=== PATIENT | female | born 1980 | race Hispanic/Latino ===

== ENCOUNTER 2017-08-25 07:30 | Emergency (ER) | payer OTHER ==
[2017-08-25 08:06] LABS: APPEARANCE,URINE CLEAR (CLEAR); BILIRUBIN,URINE NEGATIVE (NEGATIVE); COLOR,URINE YELLOW (YELLOW); GLUCOSE, URINE (UA) NEGATIVE (NEGATIVE); KETONES,URINE NEGATIVE (NEGATIVE); LEUKOCYTE ESTERASE ,URINE NEGATIVE (NEGATIVE); NITRATE,URINE NEGATIVE (NEGATIVE); OCCULT BLOOD,URINE NEGATIVE (NEGATIVE); PH,URINE 5.5 (5.0-8.0); PROTEIN,URINE NEGATIVE (NEGATIVE); UROBILINOGEN,URINE 0.2 mg/dL (0.2-1.0)
[2017-08-25 08:18] LABS: BASOPHILS % (AUTO) 0.7 % (0.0-5.0); EOSINOPHILS % (AUTO) 0.8 % (0.0-8.0); HEMATOCRIT 38.7 % (36-48); LYMPHOCYTES % (AUTO) 22.7 % (21.0-51.0); MEAN CORPUSCULAR HEMOGLOBIN 25.2 pg (27.0-33.0); MEAN CORPUSCULAR HGB CONC 31.8 g/dL (32.0-36.0); MEAN CORPUSCULAR VOLUME 79.1 fL (79-99); MONOCYTES % (AUTO) 5.8 % (3.0-13.0); PLATELET COUNT (AUTO) 326 K/uL (130-400); RED BLOOD CELL COUNT(AUTO) 4.89 MIL/uL (4.00-5.50); RED CELL DISTRIBUTION WIDTH 14.9 % (11.0-15.5); WHITE BLOOD COUNT (AUTO) 16.5 K/uL (4.8-10.8)
[2017-08-25 08:22] LABS: HCG,QUAL RESULT NEGATIVE (NEGATIVE)
[2017-08-25] MEDS ORDERED: KETOROLAC TROMETHAMINE 30MG/ML ONE (08:33)
[2017-08-25 09:11] LABS: CREATININE 0.7 mg/dL (0.5-1.5); POTASSIUM 4.2 mmol/L (3.5-5.1)
[2017-08-25 09:20] LABS: ALBUMIN 3.2 g/dL (3.5-5.0); BILIRUBIN,TOTAL 0.5 mg/dL (0.2-1.0)
[2017-08-25 09:36] LABS: TOTAL PROTEIN, SERUM 7.1 g/dL (6.0-8.3)
[2017-08-25] MEDS ORDERED: IOPAMIDOL-370 75 ML VIAL IV ONE (09:38)
== END 2017-08-25 12:24 | disposition home or self-care (01) ==
LOC: EDH 07:30
DX: R10.12 Left upper quadrant pain (principal); R10.2 Pelvic and perineal pain; K42.9 Umbilical hernia without obstruction or gangrene; E11.9 Type 2 diabetes mellitus without complications; Z88.6 Allergy status to analgesic agent; Z90.49 Acquired absence of other specified parts of digestive tract
CPT/HCPCS: 36415; 74177; 80053; 81003; 81025; 85025; 96374; 99285; J1885; Q9967

== ENCOUNTER 2017-08-27 08:30 | Emergency (ER) | payer OTHER ==
[2017-08-27 09:31] LABS: APPEARANCE,URINE Clear (CLEAR); BILIRUBIN,URINE Negative (NEGATIVE); COLOR,URINE Yellow (YELLOW); GLUCOSE, URINE (UA) Negative (NEGATIVE); KETONES,URINE Negative (NEGATIVE); LEUKOCYTE ESTERASE ,URINE Moderate (NEGATIVE); NITRATE,URINE Negative (NEGATIVE); OCCULT BLOOD,URINE Large (NEGATIVE); PH,URINE 5.5 (5.0-8.0); PROTEIN,URINE Negative (NEGATIVE)
[2017-08-27 09:33] LABS: HCG,QUAL RESULT NEGATIVE (NEGATIVE)
[2017-08-27] MEDS ORDERED: LIDOCAINE/PRILOCAINE CREAM 5GM TUBE TP ONE (09:39)
[2017-08-27 09:57] LABS: EOSINOPHILS % (AUTO) 1.3 % (0.0-8.0); MEAN CORPUSCULAR HEMOGLOBIN 25.2 pg (27.0-33.0); MEAN CORPUSCULAR VOLUME 78.5 fL (79-99); MONOCYTES % (AUTO) 4.2 % (3.0-13.0); NEUTROPHILS % (AUTO) 76.5 % (40.0-77.0); NUCLEATED RED BLOOD CELLS 0.1 % (0.0-0.19); PLATELET COUNT (AUTO) 332 K/uL (130-400); RED BLOOD CELL COUNT(AUTO) 4.58 MIL/uL (4.00-5.50); RED CELL DISTRIBUTION WIDTH 14.8 % (11.0-15.5); WHITE BLOOD COUNT (AUTO) 13.9 K/uL (4.8-10.8)
[2017-08-27 10:01] LABS: BACTERIA,URINE Rare /HPF (None Seen); RBC,URINE 51-100 /HPF (0-1); SQUAMOUS EPITHELIAL CELL,UR Few /LPF (0-2)
[2017-08-27 10:03] LABS: CREATININE 0.7 mg/dL (0.5-1.5); POTASSIUM 3.7 mmol/L (3.5-5.1)
[2017-08-27] MEDS ORDERED: KETOROLAC TROMETHAMINE 30MG/ML ONE (10:09)
[2017-08-27] MEDS ORDERED: CLINDAMYCIN 600 MG/D5% WATER 50 ML IV ONE (10:40)
== END 2017-08-27 11:48 | disposition home or self-care (01) ==
LOC: EDH 08:30
DX: L02.211 Cutaneous abscess of abdominal wall (principal); E66.01 Morbid (severe) obesity due to excess calories; E11.9 Type 2 diabetes mellitus without complications; Z90.49 Acquired absence of other specified parts of digestive tract
CPT/HCPCS: 10060; 36415; 80048; 81001; 81025; 85025; 96365; 96375; 99284; J1885; J3490 ×2

== ENCOUNTER 2020-01-31 | Emergency (ER) | payer BC | END 2020-01-31 22:52 | disposition home or self-care (01) | DX: S40.012A Contusion of left shoulder, initial encounter (principal); S40.022A Contusion of left upper arm, initial encounter; E11.9 Type 2 diabetes mellitus without complications; Z90.49 Acquired absence of other specified parts of digestive tract; Z88.6 Allergy status to analgesic agent; V59.49XA Driver of pick-up truck or van injured in collision with other motor vehicles in traffic accident, initial encounter; Y93.89 Activity, other specified; Y92.488 Other paved roadways as the place of occurrence of the external cause; Y99.8 Other external cause status ==

== ENCOUNTER 2020-08-23 16:22 | Emergency (ER) | payer OTHER, MEDICAID ==
[2020-08-23 17:02] LABS: APPEARANCE,URINE Turbid (CLEAR); BILIRUBIN,URINE Negative (NEGATIVE); COLOR,URINE Yellow (YELLOW); GLUCOSE, URINE (UA) >=1000 mg/dL (NEGATIVE); KETONES,URINE 15 mg/dL (NEGATIVE); LEUKOCYTE ESTERASE ,URINE Moderate (NEGATIVE); NITRATE,URINE Positive (NEGATIVE); OCCULT BLOOD,URINE Moderate (NEGATIVE); PROTEIN,URINE 300 mg/dL (NEGATIVE)
[2020-08-23 17:04] LABS: HCG,QUAL RESULT NEGATIVE (NEGATIVE)
[2020-08-23 17:40] LABS: BACTERIA,URINE Moderate /HPF (None Seen); MUCUS,URINE Few LPF (None Seen); SQUAMOUS EPITHELIAL CELL,UR 0-2 /HPF (0-2); WBC,URINE 26-50 /HPF (0-1)
[2020-08-23] MEDS ORDERED: DiphenhydrAMINE HCL 50 MG/ML VIAL ONE (18:02)
[2020-08-23] MEDS ORDERED: SODIUM CHLORIDE 0.9% 1000ML 1,000 ML IV ONE (18:03)
[2020-08-23] MEDS ORDERED: PROCHLORPERAZINE EDISYLATE 10 MG/2 ML VIAL ONE (18:03)
[2020-08-23 18:04] LABS: BASOPHILS % (AUTO) 0.2 % (0.0-5.0); HEMATOCRIT 42.5 % (36-48); LYMPHOCYTES % (AUTO) 10.1 % (21.0-51.0); MEAN CORPUSCULAR HEMOGLOBIN 24.9 pg (27.0-33.0); MEAN CORPUSCULAR HGB CONC 31.1 g/dL (32.0-36.0); MONOCYTES % (AUTO) 5.1 % (3.0-13.0); NEUTROPHILS % (AUTO) 84.4 % (40.0-77.0); PLATELET COUNT (AUTO) 400 K/uL (130-400); RED BLOOD CELL COUNT(AUTO) 5.31 MIL/uL (4.00-5.50); RED CELL DISTRIBUTION WIDTH 14.6 % (11.0-15.5); WHITE BLOOD COUNT (AUTO) 17.4 K/uL (4.8-10.8)
[2020-08-23 18:26] LABS: CREATININE 0.9 mg/dL (0.5-1.5); POTASSIUM 3.6 mmol/L (3.5-5.1)
[2020-08-23 18:31] LABS: ALBUMIN 3.4 g/dL (3.5-5.0); BILIRUBIN,TOTAL 0.6 mg/dL (0.2-1.0); TOTAL PROTEIN, SERUM 8.2 g/dL (6.0-8.3)
[2020-08-23] MEDS ORDERED: CEFTRIAXONE SODIUM 1 GM ONE (19:14)
[2020-08-23] MEDS ORDERED: SODIUM CHLORIDE 0.9% 50 ML IV ONE (19:14)
[2020-08-23] MEDS ORDERED: KETOROLAC TROMETHAMINE 30MG/ML ONE (19:14)
== END 2020-08-23 21:08 | disposition home or self-care (01) ==
LOC: EDH 16:22
DX: N10 Acute pyelonephritis (principal); E66.01 Morbid (severe) obesity due to excess calories; E11.9 Type 2 diabetes mellitus without complications; I10 Essential (primary) hypertension; Z88.6 Allergy status to analgesic agent; Z90.49 Acquired absence of other specified parts of digestive tract; Z68.41 Body mass index [BMI] 40.0-44.9, adult
CPT/HCPCS: 36415; 74176; 80053; 81001; 81025; 85025; 87077; 87088; 87186; 96361; 96365; 96375; 99284; J0696; J0780; J1200; J1885; J7030; 96374

== ENCOUNTER 2021-05-03 11:48 | Emergency (ER) | payer BC, MEDICAID ==
[~2021-05-03] VITALS: Ht 167.6 cm; Wt 117.9 kg
[2021-05-03 11:49] VITALS: BP 130/73
[2021-05-03] MEDS ORDERED: IBUP-1552 PO (13:24)
[2021-05-03] MEDS ORDERED: KETOROLAC 60 MG VIAL (30MG/ML) ONE (13:51)
[2021-05-03] MEDS ORDERED: KETOROLAC 60 MG VIAL (30MG/ML) IM ONE (14:00)
== END 2021-05-03 14:11 | disposition home or self-care (01) ==
LOC: EDH 11:48
DX: S62.636A Displaced fracture of distal phalanx of right little finger, initial encounter for closed fracture (principal); E11.9 Type 2 diabetes mellitus without complications; Z79.1 Long term (current) use of non-steroidal anti-inflammatories (NSAID); Z88.5 Allergy status to narcotic agent; W22.03XA Walked into furniture, initial encounter; Y93.01 Activity, walking, marching and hiking; Y92.89 Other specified places as the place of occurrence of the external cause; Y99.8 Other external cause status
CPT/HCPCS: 29130; 73140; 96372; 99283; J1885

== ENCOUNTER 2021-10-03 22:13 | Emergency (ER) | payer OTHER, MEDICAID ==
[~2021-10-03] VITALS: Ht 167.6 cm; Wt 124.7 kg
[~2021-10-03 22:13] MED LIST: IBUP-1552 PO
[2021-10-03 22:36] VITALS: BP 128/64
[2021-10-03 22:55] LABS: BASOPHILS % (AUTO) 0.5 % (0.0-5.0); EOSINOPHILS % (AUTO) 1.1 % (0.0-8.0); HEMATOCRIT 39.7 % (36-48); LYMPHOCYTES % (AUTO) 28.8 % (21.0-51.0); MEAN CORPUSCULAR HEMOGLOBIN 26.2 pg (27.0-33.0); MEAN CORPUSCULAR HGB CONC 30.5 g/dL (32.0-36.0); MEAN CORPUSCULAR VOLUME 86.1 fL (79-99); MONOCYTES % (AUTO) 7.1 % (3.0-13.0); PLATELET COUNT (AUTO) 356 K/uL (130-400); RED BLOOD CELL COUNT(AUTO) 4.61 MIL/uL (4.00-5.50); RED CELL DISTRIBUTION WIDTH 13.7 % (11.0-15.5); WHITE BLOOD COUNT (AUTO) 11.3 K/uL (4.8-10.8)
[2021-10-03] MEDS: CYCLOBENZAPRINE HCL 10 MG TABLET PO ONE (22:56)
[2021-10-03] MEDS: KETOROLAC 60 MG VIAL (30MG/ML) IM ONE (22:56)
[2021-10-03 23:05] LABS: CREATININE 0.7 mg/dL (0.5-1.5); POTASSIUM 3.5 mmol/L (3.5-5.1)
[2021-10-03 23:09] LABS: ALBUMIN 3.2 g/dL (3.5-5.0); BILIRUBIN,TOTAL 0.2 mg/dL (0.2-1.0); TOTAL PROTEIN, SERUM 7.3 g/dL (6.0-8.3)
[2021-10-03] MEDS ORDERED: CYCL10TA16 PO (23:23)
[2021-10-03] MEDS ORDERED: NAPR-1180 PO (23:23)
== END 2021-10-03 23:32 | disposition home or self-care (01) ==
LOC: EDH 22:13
DX: S46.812A Strain of other muscles, fascia and tendons at shoulder and upper arm level, left arm, initial encounter (principal); M19.012 Primary osteoarthritis, left shoulder; E66.01 Morbid (severe) obesity due to excess calories; Z88.5 Allergy status to narcotic agent; Z79.1 Long term (current) use of non-steroidal anti-inflammatories (NSAID); Z90.49 Acquired absence of other specified parts of digestive tract; Z68.41 Body mass index [BMI] 40.0-44.9, adult; X58.XXXA Exposure to other specified factors, initial encounter; Y93.89 Activity, other specified; Y92.89 Other specified places as the place of occurrence of the external cause; Y99.8 Other external cause status
CPT/HCPCS: 36415; 73010; 73030; 80053; 84484; 85025; 96372; 99284; J1885